=== PATIENT | male | born 1975 | race African-American/Black ===

== ENCOUNTER 2018-02-11 16:52 | Emergency (ER) | payer OTHER ==
[~2018-02-11] VITALS: Ht 177.8 cm; Wt 63.5 kg
[2018-02-11 17:25] LABS: HEMATOCRIT 38.6 % (42.0-52.0); HEMOGLOBIN 12.8 gm/dL (14.0-18.0); MCH 32.3 pg (26.0-34.0); MCHC 33.1 g/dL (28.0-37.0); MCV 97.5 fL (80.0-100.0); PLATELET COUNT 179 thou/uL (150-400); RBC 3.96 mil/uL (4.50-6.00); RDW 13.3 % (10.5-14.5); WBC 12.5 thou/uL (4.0-11.0)
[2018-02-11 17:31] LABS: CREATININE 1.3 mg/dL (0.7-1.3); POTASSIUM 3.5 mmol/L (3.5-5.1)
[2018-02-11 17:36] LABS: DIRECT BILIRUBIN 1.1 mg/dL (<0.1-0.3); TOTAL BILIRUBIN 1.8 mg/dL (<0.1-1.0)
[2018-02-11 18:14] LABS: ABSOLUTE NEUTROPHILS 10.9 thou/uL (1.4-8.2)
[2018-02-11 18:15] LABS: ANISOCYTOSIS 1+; TARGET CELLS OCCASIONAL
[2018-02-11] MEDS ORDERED: ZOFRAN ODT4 MG PO (20:37)
[2018-02-11 21:13] VITALS: BP 153/111
== END 2018-02-11 21:25 | disposition home or self-care (01) ==
LOC: ER 16:52
PROVIDERS: Emergency Medicine
DX: K52.9 Noninfective gastroenteritis and colitis, unspecified (principal); F10.10 Alcohol abuse, uncomplicated; R00.0 Tachycardia, unspecified

== ENCOUNTER 2018-02-13 10:11 | Inpatient (IN) | payer OTHER ==
[~2018-02-13] VITALS: Ht 152.4 cm; Wt 52.2 kg
--- NOTE | ~2018-02-13 | EKG ---
[address] [address] ELECTROCARDIOGRAM REPORT Name: EMILY AZUL Room #: 353- ADM IN M.R.#: [id number] Admission: 02/13/18 Attend Phys: Williams Navarro MD Discharge: Date of : 77 Report #: [id number] THIS REPORT FOR: //name// [facility] Test Date: 2018-02-13 Test Time: 18:33:12 Pat Name: EMILY AZUL Department: Room: 353 Gender: M Core Man: Luis Antonio GARCIA : 1975 Requested By: Williams Navarro Order Number: [id number] MD: Alberto Beltre Measurements Intervals [place] Rate: 136 P: 80 [place]: 114 QRS: 76 QRSD: 82 T: 21 QT: 300 QTc: 452 Interpretive Statements Sinus tachycardia Atrial premature complex No previous ECG available for comparison Electronically Signed On 02-14-2018 8:11:54 CDT by Alberto Beltre [email or web address] <ELECTRONICALLY SIGNED> By: Alberto Beltre MD, [facility] 02/14/18 0811 1833 1833 Alberto Beltre MD, FACC /EPI
--- NOTE | ~2018-02-13 | HC ---
[facility] [place] [address] [place] [address] CONSULTATION Name: EMILY AZUL Room #: 353-P ADM IN M.R.#: [id number] Admission: 02/13/18 Attend Phys: Williams Navarro MD Discharge: Date of : 77 Report #: [id number] THIS REPORT FOR: //name// CC: ALYSSA physician/PCP Williams Navarro DATE OF SERVICE: 02/18/2018 REASON FOR CONSULTATION: I was asked to evaluate concerning multidrug resistant gram negative pyelonephritis. HISTORY OF PRESENT ILLNESS: The patient is a 42-year-old with history of hypertension, alcohol abuse who presented with nausea, vomiting, fever, chills, no definite dysuria. Found to have E. coli pyelonephritis by blood culture, urine culture, identification as well as CT scan of the chest, which showed increased inflammatory changes of the right kidney. Placed initially on ceftriaxone, then Zosyn, now on meropenem. Initial fever up to 103 degrees. Now afebrile and hemodynamically stable. Does have underlying hypertension. The patient was a poor historian. Does drink a fair amount of alcohol, reported 2 pints of hard liquor a week. REVIEW OF SYSTEMS: Denies any cough, sputum, chest pain, palpitations. His nausea and vomiting has improved. Still has some loose stool. No reported dysuria. Has an external catheter on now. PAST MEDICAL HISTORY, FAMILY HISTORY, SOCIAL HISTORY: Unchanged from his history and physical, which was reviewed. REVIEW OF SYSTEMS: As noted above. PHYSICAL EXAMINATION: VITAL SIGNS: He is afebrile, hemodynamically stable. GENERAL: He is alert and cooperative. Very weak and thin. Looks poorly nourished. HEENT: Unremarkable. NECK: Supple. LUNGS: Clear. HEART: Regular, without murmur. ABDOMEN: Soft, nontender, no hepatosplenomegaly or mass. Mild right CVA tenderness. GENITOURINARY: External genitalia unremarkable with an external catheter in place. EXTREMITIES: Unremarkable. NEUROLOGIC: Nonfocal. LABORATORY STUDIES: Creatinine 1.3, alkaline phosphatase 243, bilirubin 2.3, [facility] [address] [place] [address] CONSULTATION Name: EMILY AZUL Room #: 353-P [facility] IN ..#: [id number] Admission: 02/13/18 Attend Phys: Williams Navarro MD Discharge: Date of : 77 Report #: [id number] ALT 41. Hemoglobin 9.5, platelet count 78,000, white count 12.2 with 83% segs. Blood cultures and urine culture both showing E. coli sensitive to Zosyn, nitrofurantoin and meropenem. CT of the chest unremarkable. CT of the abdomen showed inflammatory changes around the right kidney. IMPRESSION AND PLAN: A 42-year-old with right pyelonephritis due to multidrug resistant Escherichia coli. Unclear why he would have this organism causing his disease. This will need prolonged IV antibiotic therapy to completion of his treatment. Would check postvoid residuals. Alcohol cessation and follow up laboratory studies to ensure white count normalizes, creatinine normalizes, hemoglobin and platelet count normalize. FINAL DISPOSITION: We will need to discuss further with case management. <ELECTRONICALLY SIGNED> By: Kun Joe MD 02/19/18 1843 1418 1948 Kun Joe MD /nt
--- NOTE | ~2018-02-13 | HC ---
[facility] [place] [address] CONSULTATION Name: EMILY AZUL Room #: 353-P ADM IN M.R.#: [id number] Admission: 02/13/18 Attend Phys: Williams Navarro MD Discharge: Date of : 77 Report #: [id number] THIS REPORT FOR: //name// CC: ALYSSA physician/PCP Williams Navarro DATE OF SERVICE: 02/20/2018 HISTORY OF PRESENT ILLNESS: The patient is a 42-year-old -[place] male with a history of alcohol abuse, admitted with nausea and vomiting. He was noted to have an elevated white count and was diagnosed with pyelonephritis on CT. He is noted to have a right-sided pyelonephritis with multi-resistant E. coli. Infectious Disease is involved and he is on IV meropenem. He also went through alcohol withdrawal. He is noted to have depression and was seen by Psychiatry and started on Remeron. He has also been treated for acute renal failure. He has significant weakness consistent with an alcoholic myopathy along with generalized weakness and debilitation. We are seeing him in rehabilitation medicine consultation. PAST MEDICAL HISTORY: Includes hypertension and alcohol abuse, apparently drinking hard liquor 1 pint daily for years. HABITS: No history of tobacco abuse. See above noted alcohol abuse. There is another reference to 2 pints of hard liquor a week. ALLERGIES: No known drug allergies. SOCIAL HISTORY: Works as an [employer], lives in an apartment with his cousin, was premorbidly independent, ambulatory without gait aids, cousin also apparently works as a DIRECTOR [employer]. REVIEW OF SYSTEMS: Complains of generalized weakness. No current complaints of chest pain, shortness of breath or abdominal discomfort. PHYSICAL EXAMINATION: GENERAL: A 42-year-old -[place] male in no obvious distress. VITAL SIGNS: Last recorded temperature 98.6, pulse 98, respirations 20, blood pressure 130/92. NEUROLOGIC: He is alert, follows basic commands without difficulty. Facies appeared symmetric, was able to answer basic orientation questions. Functional range of motion of both upper extremities. Strength is grade 4-/5. DTRs are trace to 1. Lower extremities, no focal calf swelling, functional range of motion with strength grade 4-/5. He is needing min assist with sit to stand. Gait 200 feet mod assist with a front-wheeled walker. Tends to veer to the left. [facility] [address] [place] [address] CONSULTATION Name: EMILY AZUL Room #: 353-P [facility] IN M.R.#: [id number] Admission: 02/13/18 Attend Phys: Williams Navarro MD Discharge: Date of : 77 Report #: [id number] ASSESSMENT: A 42-year-old -[place] male with the following problem list: 1. Alcoholic myopathy. 2. Medical complexity with generalized debilitation. 3. Right-sided pyelonephritis, multi-resistant E. coli. We will need a full 14 days of IV meropenem. 4. History of depression started on Remeron per Psychiatry. 5. ETOH abuse. 6. Acute renal failure. Creatinine has now normalized at 0.9. 7. History of hypertension. PLAN: We checked regarding a short acute in-hospital inpatient rehabilitation stay. We will be glad to follow along with you. ADDENDUM: The patient was started on the IV meropenem on 02/19/2018 14 days per Infectious Disease. By: [id number] Josesito Arvizu MD /PMT
[2018-02-13 10:11] VITALS: BP 140/104
[~2018-02-13 10:11] MED LIST: ZOFRAN ODT4 MG PO
[2018-02-13 10:47] LABS: ABSOLUTE NEUTROPHILS 11.9 thou/uL (1.4-8.2); ANION GAP 18 mmol/L (7-16); BASOPHILS 0.2 % (0.0-2.0); BUN 17 mg/dL (7-18); CHLORIDE 105 mmol/L (98-107); CO2 18 mmol/L (21-32); CREATININE 1.7 mg/dL (0.7-1.3); GLUCOSE 126 mg/dL (74-106); HEMATOCRIT 34.1 % (42.0-52.0); HEMOGLOBIN 11.5 gm/dL (14.0-18.0); LYMPHOCYTES 4.3 % (24.0-44.0); MCH 32.4 pg (26.0-34.0); MCHC 33.6 g/dL (28.0-37.0); MCV 96.4 fL (80.0-100.0); MONOCYTES 4.2 % (1.0-8.0); PLATELET COUNT 143 thou/uL (150-400); POLYS 91.3 % (36.0-66.0); RBC 3.54 mil/uL (4.50-6.00); RDW 13.4 % (10.5-14.5); SODIUM 141 mmol/L (136-145)
[2018-02-13 10:51] LABS: POTASSIUM 2.5 mmol/L (3.5-5.1)
[2018-02-13] MEDS ORDERED: TOPROL XL100 MG PO (10:57)
[2018-02-13 10:59] LABS: BE(vivo) -5.7 mmol/L (-2 to +3); HCO3 16.3 mmol/L (22.0-26.0); PCO2 22.2 mmHg (35.0-45.0); PO2 97.4 mmHg (80.0-100.0); pH 7.485 (7.360-7.450)
[2018-02-13 11:00] LABS: LIPASE 170 U/L (73-393); SGOT 267 U/L (15-37); TOTAL BILIRUBIN 2.8 mg/dL (<0.1-1.0)
[2018-02-13 11:01] LABS: ALBUMIN 2.8 g/dL (3.4-5.0); SGPT 78 U/L (30-65); TOTAL PROTEIN 8.6 g/dL (6.4-8.2); TROPONIN-I <0.06 ng/mL (<0.06)
[2018-02-13 12:20] LABS: URINE BLOOD 2+ (Negative); URINE CLARITY CLOUDY; URINE GLUCOSE-RANDOM* NEGATIVE (Negative); URINE KETONES TRACE (Negative); URINE NITRITE-REFLEX NEGATIVE (Negative); URINE PROTEIN (DIPSTICK) 3+ (Negative); URINE UROBILINOGEN 0.2 E.U./dl (0.2-1.0)
[2018-02-13 12:25] LABS: ICTOTEST (BILI CONFIRMATORY) Negative (Negative); URINE BILIRUBIN NEGATIVE (Negative); URINE COLOR DARK YELLOW; URINE LEUKOCYTES-REFLEX TRACE (Negative)
[2018-02-13 12:28] LABS: AMP/METHAMP Negative (Negative); BARBITURATES Negative (Negative); BENZODIAZEPINES Negative (Negative); COCAINE Negative (Negative); METHADONE Negative (Negative); OPIATES Negative (Negative); PCP Negative (Negative)
[2018-02-13 12:54] LABS: CASTS None Seen /LPF (None Seen); MUCUS 4-6 Moderate strn/LPF (None Seen); SQUAMOUS 0-3 Few /LPF (0-3)
[2018-02-13 12:55] LABS: BACTERIA-REFLEX >30 Many /HPF (None Seen); CRYSTALS None Seen /LPF (None Seen); URINE WBC-REFLEX 6-15 Few /HPF (0-5)
[2018-02-13 12:56] LABS: URINE RBC 0-2 Rare /HPF (0-2)
[2018-02-13 13:48] VITALS: BP 128/89
[2018-02-13 14:00] VITALS: BP 122/88
[2018-02-13 16:41] VITALS: BP 141/100
[2018-02-13 16:57] LABS: MAGNESIUM 1.7 mg/dL (1.8-2.4); POTASSIUM 3.4 mmol/L (3.5-5.1)
[2018-02-13 19:40] VITALS: BP 129/91
[2018-02-13 21:31] LABS: MAGNESIUM 1.9 mg/dL (1.8-2.4)
[2018-02-13 21:34] LABS: POTASSIUM 2.8 mmol/L (3.5-5.1)
[2018-02-13 23:38] VITALS: BP 104/78
[2018-02-14 03:07] LABS: MCH 32.2 pg (26.0-34.0); MCHC 32.7 g/dL (28.0-37.0); MCV 98.3 fL (80.0-100.0); RBC 2.85 mil/uL (4.50-6.00); RDW 13.3 % (10.5-14.5); WBC 14.6 thou/uL (4.0-11.0)
[2018-02-14 03:14] LABS: CALCIUM 6.4 mg/dL (8.5-10.1); CREATININE 1.6 mg/dL (0.7-1.3); POTASSIUM 3.4 mmol/L (3.5-5.1)
[2018-02-14 03:15] LABS: HEMOGLOBIN 9.2 gm/dL (14.0-18.0)
[2018-02-14 04:10] VITALS: BP 140/95
[2018-02-14 08:30] VITALS: BP 114/89
[2018-02-14 13:14] VITALS: BP 122/89
[2018-02-14 19:10] VITALS: BP 132/97
[2018-02-14 23:40] VITALS: BP 113/73
[2018-02-15 03:30] VITALS: BP 138/84
[2018-02-15 07:56] LABS: HEMATOCRIT 23.8 % (42.0-52.0); HEMOGLOBIN 8.1 gm/dL (14.0-18.0); MCHC 34.1 g/dL (28.0-37.0); MCV 96.9 fL (80.0-100.0); RBC 2.46 mil/uL (4.50-6.00); RDW 13.4 % (10.5-14.5); WBC 10.1 thou/uL (4.0-11.0)
[2018-02-15 08:16] LABS: ALBUMIN 1.5 g/dL (3.4-5.0); CALCIUM 6.9 mg/dL (8.5-10.1); CREATININE 1.5 mg/dL (0.7-1.3); POTASSIUM 3.4 mmol/L (3.5-5.1); TOTAL BILIRUBIN 2.3 mg/dL (<0.1-1.0); TOTAL PROTEIN 5.5 g/dL (6.4-8.2)
[2018-02-15 08:21] VITALS: BP 132/91
[2018-02-15 11:59] VITALS: BP 155/105
[2018-02-15 16:11] VITALS: BP 110/74
[2018-02-15 16:58] LABS: CREATININE 1.6 mg/dL (0.7-1.3); MAGNESIUM 2.1 mg/dL (1.8-2.4); POTASSIUM 3.3 mmol/L (3.5-5.1)
[2018-02-15 19:29] VITALS: BP 136/101
[2018-02-16] VITALS (7 sets, daily range): BP systolic 129–159; BP diastolic 91–114
[2018-02-16 06:02] LABS: HEMATOCRIT 23.2 % (42.0-52.0); HEMOGLOBIN 7.9 gm/dL (14.0-18.0); MCH 32.4 pg (26.0-34.0); MCHC 33.9 g/dL (28.0-37.0); MCV 95.6 fL (80.0-100.0); RBC 2.43 mil/uL (4.50-6.00); WBC 8.6 thou/uL (4.0-11.0)
[2018-02-16 06:20] LABS: CALCIUM 7.1 mg/dL (8.5-10.1); CREATININE 1.4 mg/dL (0.7-1.3); POTASSIUM 4.2 mmol/L (3.5-5.1)
[2018-02-17 03:18] VITALS: BP 152/100
[2018-02-17 07:56] VITALS: BP 162/119
[2018-02-17 10:19] LABS: HEMATOCRIT 28.5 % (42.0-52.0); HEMOGLOBIN 9.5 gm/dL (14.0-18.0); MCHC 33.5 g/dL (28.0-37.0); MCV 95.7 fL (80.0-100.0); RBC 2.97 mil/uL (4.50-6.00); RDW 13.2 % (10.5-14.5); WBC 12.2 thou/uL (4.0-11.0)
[2018-02-17 10:27] LABS: CREATININE 1.3 mg/dL (0.7-1.3); POTASSIUM 3.5 mmol/L (3.5-5.1)
[2018-02-17 11:26] LABS: ABSOLUTE NEUTROPHILS 10.1 thou/uL (1.4-8.2)
[2018-02-17 11:27] LABS: ANISOCYTOSIS SLIGHT
[2018-02-17 11:30] LABS: PLATELET COUNT 78 thou/uL (150-400)
[2018-02-17 11:41] VITALS: BP 147/110
[2018-02-17 16:00] VITALS: BP 142/104
[2018-02-17 17:42] LABS: MAGNESIUM 1.3 mg/dL (1.8-2.4)
[2018-02-17 17:45] LABS: POTASSIUM 2.9 mmol/L (3.5-5.1)
[2018-02-17 19:25] VITALS: BP 137/106
[2018-02-18 03:25] VITALS: BP 136/102
[2018-02-18 07:28] VITALS: BP 127/97
[2018-02-18 08:59] LABS: MAGNESIUM 2.3 mg/dL (1.8-2.4)
[2018-02-18 09:01] LABS: POTASSIUM 3.9 mmol/L (3.5-5.1)
[2018-02-18 11:20] VITALS: BP 111/78
[2018-02-18 16:00] VITALS: BP 139/93
[2018-02-18 19:15] VITALS: BP 132/89
[2018-02-19 03:30] VITALS: BP 123/90
[2018-02-19 05:37] LABS: MCH 32.8 pg (26.0-34.0); MCHC 34.2 g/dL (28.0-37.0)
[2018-02-19 05:40] LABS: HEMATOCRIT 20.9 % (42.0-52.0); MCV 96.1 fL (80.0-100.0); RBC 2.18 mil/uL (4.50-6.00); RDW 13.1 % (10.5-14.5); WBC 7.2 thou/uL (4.0-11.0)
[2018-02-19 05:44] LABS: HEMOGLOBIN 7.2 gm/dL (14.0-18.0)
[2018-02-19 06:00] LABS: CALCIUM 7.4 mg/dL (8.5-10.1); POTASSIUM 3.7 mmol/L (3.5-5.1)
[2018-02-19 07:40] VITALS: BP 140/101
[2018-02-19 10:57] VITALS: BP 142/108
[2018-02-19 17:00] VITALS: BP 139/93
[2018-02-19 19:47] VITALS: BP 124/85
[2018-02-20 05:32] VITALS: BP 122/92
[2018-02-20 05:42] LABS: ABSOLUTE NEUTROPHILS 6.7 thou/uL (1.4-8.2); BASOPHILS 0.4 % (0.0-2.0); EOSINOPHILS 2.7 % (0.0-3.0); HEMATOCRIT 23.2 % (42.0-52.0); HEMOGLOBIN 7.7 gm/dL (14.0-18.0); LYMPHOCYTES 8.3 % (24.0-44.0); MCH 32.6 pg (26.0-34.0); MCHC 33.3 g/dL (28.0-37.0); MCV 97.8 fL (80.0-100.0); MONOCYTES 5.4 % (1.0-8.0); PLATELET COUNT 87 thou/uL (150-400); POLYS 83.2 % (36.0-66.0); RBC 2.38 mil/uL (4.50-6.00); RDW 13.1 % (10.5-14.5)
[2018-02-20 06:04] LABS: CALCIUM 7.6 mg/dL (8.5-10.1); CREATININE 0.9 mg/dL (0.7-1.3); POTASSIUM 3.4 mmol/L (3.5-5.1)
[2018-02-20 07:36] VITALS: BP 130/92
[2018-02-20 12:17] VITALS: BP 143/101
[2018-02-20 16:41] VITALS: BP 145/106
[2018-02-20 19:05] VITALS: BP 138/105
[2018-02-21 04:47] VITALS: BP 133/90
[2018-02-21 07:47] VITALS: BP 131/99
[2018-02-21 11:53] VITALS: BP 133/96
[2018-02-21 12:52] LABS: ABSOLUTE NEUTROPHILS 8.8 thou/uL (1.4-8.2); BASOPHILS 0.9 % (0.0-2.0); EOSINOPHILS 1.3 % (0.0-3.0); HEMOGLOBIN 8.6 gm/dL (14.0-18.0); MCHC 33.1 g/dL (28.0-37.0); MCV 99.8 fL (80.0-100.0); MONOCYTES 5.1 % (1.0-8.0); POLYS 85.7 % (36.0-66.0); RBC 2.61 mil/uL (4.50-6.00); WBC 10.3 thou/uL (4.0-11.0)
[2018-02-21 13:03] LABS: ALBUMIN 1.6 g/dL (3.4-5.0); POTASSIUM 3.8 mmol/L (3.5-5.1); TOTAL BILIRUBIN 1.8 mg/dL (<0.1-1.0); TOTAL PROTEIN 5.8 g/dL (6.4-8.2)
[2018-02-21 13:39] LABS: LARGE PLATELETS FEW; PLATELET COUNT 127 thou/uL (150-400); PLATELET ESTIMATE NORMAL
[2018-02-21 17:20] LABS: URINE BILIRUBIN NEGATIVE (Negative); URINE BLOOD TRACE (Negative); URINE CLARITY CLEAR; URINE COLOR YELLOW; URINE GLUCOSE-RANDOM* NEGATIVE (Negative); URINE KETONES NEGATIVE (Negative); URINE LEUKOCYTES-REFLEX TRACE (Negative); URINE NITRITE-REFLEX NEGATIVE (Negative); URINE PROTEIN (DIPSTICK) NEGATIVE (Negative); URINE SPECIFIC GRAVITY <= 1.005 (1.005-1.035); URINE UROBILINOGEN 0.2 E.U./dl (0.2-1.0)
[2018-02-21 17:36] VITALS: BP 141/103
[2018-02-21 19:44] VITALS: BP 136/105
[2018-02-22 04:40] VITALS: BP 132/81
[2018-02-22 06:08] LABS: ABSOLUTE NEUTROPHILS 7.2 thou/uL (1.4-8.2); BASOPHILS 0.4 % (0.0-2.0); EOSINOPHILS 1.4 % (0.0-3.0); HEMATOCRIT 23.9 % (42.0-52.0); LYMPHOCYTES 10.2 % (24.0-44.0); MCHC 33.4 g/dL (28.0-37.0); MCV 98.7 fL (80.0-100.0); MONOCYTES 6.6 % (1.0-8.0); PLATELET COUNT 118 thou/uL (150-400); POLYS 81.4 % (36.0-66.0); RBC 2.42 mil/uL (4.50-6.00); RDW 14.9 % (10.5-14.5); WBC 8.9 thou/uL (4.0-11.0)
[2018-02-22 06:21] LABS: CALCIUM 7.5 mg/dL (8.5-10.1); CREATININE 0.9 mg/dL (0.7-1.3); POTASSIUM 3.3 mmol/L (3.5-5.1)
[2018-02-22 07:53] VITALS: BP 115/82
[2018-02-22 13:30] VITALS: BP 120/75
[2018-02-22 17:34] VITALS: BP 130/89
[2018-02-22 19:29] VITALS: BP 145/106
[2018-02-23 00:20] VITALS: BP 135/97
[2018-02-23 04:06] VITALS: BP 145/102
[2018-02-23 07:31] VITALS: BP 119/96
[2018-02-23 11:23] VITALS: BP 123/84
[2018-02-23 16:40] VITALS: BP 131/98
[2018-02-23 19:20] VITALS: BP 131/87
[2018-02-24 04:56] LABS: ABSOLUTE NEUTROPHILS 5.9 thou/uL (1.4-8.2); BASOPHILS 0.6 % (0.0-2.0); EOSINOPHILS 2.4 % (0.0-3.0); HEMATOCRIT 22.8 % (42.0-52.0); HEMOGLOBIN 7.5 gm/dL (14.0-18.0); LYMPHOCYTES 9.2 % (24.0-44.0); MCH 32.3 pg (26.0-34.0); MCHC 33.2 g/dL (28.0-37.0); MCV 97.3 fL (80.0-100.0); MONOCYTES 6.1 % (1.0-8.0); PLATELET COUNT 139 thou/uL (150-400); POLYS 81.7 % (36.0-66.0); RBC 2.34 mil/uL (4.50-6.00); RDW 14.3 % (10.5-14.5); WBC 7.2 thou/uL (4.0-11.0)
[2018-02-24 05:10] LABS: CALCIUM 7.7 mg/dL (8.5-10.1); CREATININE 0.8 mg/dL (0.7-1.3); POTASSIUM 4.6 mmol/L (3.5-5.1)
[2018-02-24 05:35] VITALS: BP 122/80
[2018-02-24 08:11] VITALS: BP 150/102
[2018-02-24 12:19] VITALS: BP 128/87
[2018-02-24 16:24] VITALS: BP 116/78
[2018-02-24 20:24] VITALS: BP 122/90
[2018-02-25 05:48] LABS: ABSOLUTE NEUTROPHILS 3.5 thou/uL (1.4-8.2); BASOPHILS 1.1 % (0.0-2.0); EOSINOPHILS 4.4 % (0.0-3.0); HEMATOCRIT 21.8 % (42.0-52.0); HEMOGLOBIN 7.2 gm/dL (14.0-18.0); LYMPHOCYTES 12.6 % (24.0-44.0); MCH 32.2 pg (26.0-34.0); MCHC 33.3 g/dL (28.0-37.0); MCV 96.8 fL (80.0-100.0); MONOCYTES 8.2 % (1.0-8.0); PLATELET COUNT 145 thou/uL (150-400); POLYS 73.7 % (36.0-66.0); RBC 2.25 mil/uL (4.50-6.00); RDW 14.1 % (10.5-14.5); WBC 4.7 thou/uL (4.0-11.0)
[2018-02-25 06:15] LABS: ALBUMIN 1.6 g/dL (3.4-5.0); CALCIUM 7.8 mg/dL (8.5-10.1); CREATININE 0.9 mg/dL (0.7-1.3); POTASSIUM 4.9 mmol/L (3.5-5.1); TOTAL BILIRUBIN 1.3 mg/dL (<0.1-1.0); TOTAL PROTEIN 5.5 g/dL (6.4-8.2)
[2018-02-25 07:32] VITALS: BP 127/97
[2018-02-25 15:40] VITALS: BP 134/85
[2018-02-25 19:25] VITALS: BP 142/101
[2018-02-26 05:02] VITALS: BP 121/72
[2018-02-26 07:45] VITALS: BP 121/87
[2018-02-26 12:00] VITALS: BP 127/89
[2018-02-26] MEDS ORDERED: DOXYCYCLINE 10100 MG PO (13:19)
[2018-02-26 15:20] VITALS: BP 127/89
[2018-02-26 16:32] VITALS: BP 124/88
== END 2018-02-26 17:45 | disposition home or self-care (01) | DRG 871 ==
LOC: ER 10:11 → EROBS 12:09 → 3W 12:09 → ENTRNSPT 02-26 17:05 → 3W 02-26 17:45
PROVIDERS: Hospitalist; Internal Medicine Infectious Disease; Physician Assistant; Specialist
DX: A41.9 Sepsis, unspecified organism (principal); J18.9 Pneumonia, unspecified organism; E43 Unspecified severe protein-calorie malnutrition; N12 Tubulo-interstitial nephritis, not specified as acute or chronic; G72.1 Alcoholic myopathy; F10.239 Alcohol dependence with withdrawal, unspecified; B96.20 Unspecified Escherichia coli [E. coli] as the cause of diseases classified elsewhere; Z16.24 Resistance to multiple antibiotics; R26.89 Other abnormalities of gait and mobility; F32.9 Major depressive disorder, single episode, unspecified; I10 Essential (primary) hypertension; Y90.9 Presence of alcohol in blood, level not specified; D64.9 Anemia, unspecified; E87.6 Hypokalemia; E83.42 Hypomagnesemia; K70.10 Alcoholic hepatitis without ascites; Z79.899 Other long term (current) drug therapy; Z68.22 Body mass index [BMI] 22.0-22.9, adult
CPT/HCPCS: 10879